=== PATIENT | male | born 1945 | race Caucasian/White ===

== ENCOUNTER → 2025-06-26 | Outpatient (REF) | payer MEDICARE, BC ==
[~2025-06-26] MED LIST: REGADENOSON 0.4 MG/5 ML SYR IV ONE
== END ==
LOC: NM 08:23
PROVIDERS: ATTEND Internal Medicine Cardiovascular Disease
DX: I49.3 Ventricular premature depolarization (principal)
CPT/HCPCS: 78452; 93017; A9502; J2785